=== PATIENT | male | born 1950 | race Caucasian/White ===

== ENCOUNTER 2016-09-12 07:31 | Day surgery (SDC) | payer OTHER, MEDICARE ==
[2016-09-06 16:55] VITALS: BMI 25.5
[2016-09-12] MEDS ORDERED: POVIDONE-IODINE 5% OPHTHALMIC PREP 30 ML SOLUTION ONE (09:55)
[2016-09-12] MEDS ORDERED: BUPIVACAINE HCL/PF 0.5% (5MG/ML) 10 ML VIAL ONE (09:55)
[2016-09-12] MEDS ORDERED: LIDOCAINE 1%/EPI 1:100000 (20 ML MULTI DOSE VIAL) ONE ×2 (09:55→10:24)
[2016-09-12] MEDS ORDERED: TETRACAINE 0.5% OPHTH SOLN 2 ML BOTTLE ONE (09:55)
[2016-09-12] MEDS ORDERED: BACITRACIN 3.5 GM OPTHALMIC OINT TUBE ONE (09:55)
[2016-09-12] MEDS ORDERED: GUM MASTIC/STORAX/MSAL/ALCOHOL 1 DRP DROPSBTL MC ONE (10:24)
[2016-09-12] MEDS ORDERED: ACETAMINOPHEN 500 MG TABLET (FP) PO PRN (10:36)
[2016-09-12] MEDS ORDERED: PROPOFOL 20 ML ONE (10:58)
[2016-09-12] MEDS ORDERED: MIDAZOLAM HCL 2 MG/2 ML SINGLE DOSE VIAL ONE ×2 (10:58)
[2016-09-12] MEDS ORDERED: ceFAZolin SODIUM 1 GM VIAL ONE (11:16)
[2016-09-12] MEDS ORDERED: DEXAMETHASONE SOD PHOSPHATE 4 MG/1 ML VIAL ONE (11:36)
[2016-09-12] MEDS ORDERED: ONDANSETRON 4 MG/2 ML VIAL ONE (11:36)
[2016-09-12] MEDS ORDERED: BSS (NA/CA/MG/K) BALANCED SALT SOLUTION OPHTH SOLN 15 ML BOTTLE ONE (11:48)
[2016-09-12] MEDS ORDERED: ONDANSETRON 4 MG/2 ML VIAL IVPUSH PRN (12:00)
[2016-09-12] MEDS ORDERED: LACTATED RINGERS SOLUTION 1,000 ML IV SCH (12:00)
[2016-09-12] MEDS ORDERED: oxyCODONE HCL 5 MG TABLET PO PRN (12:00)
[2016-09-12 12:23] VITALS: TEMP 97.9
[2016-09-12 13:06] VITALS: BP 124/67; PULSE 58
--- NOTE | 2016-09-13 13:57 | OP ---
DATE OF OPERATION: 09/12/2016 PREOPERATIVE DIAGNOSES: Basal cell carcinoma, left lower lid. POSTOPERATIVE DIAGNOSES: Basal cell carcinoma, left lower lid. PROCEDURE: Debridement and reconstruction of left lower lid defect following basal cell excision. SURGEON: Ally Alejo MD ANESTHESIA: Local with sedation. COMPLICATIONS: None. ESTIMATED BLOOD LOSS: 2 -3 mL OPERATIVE REPORT: Patient brought to the operating room and placed on the operating room table. Vital signs were monitored by Anesthesia. A time-out was performed. Tetracaine was placed in both eyes and after intravenous sedation, a 50:50 mixture of 2% Xylocaine 1:100,000 epinephrine and 0.5% Marcaine was injected subcutaneously in the left lower lid diffusely for 2 to 3 mL. Massage was applied for hemostasis. Patient was prepped and draped in sterile fashion exposing both eyes. Hexachlorophene was used avoiding contact with the eyes due to the patient's IODINE allergy, and then the wound was debrided and then subsequently a line was incised nasally and temporally out to the lateral canthus and skin and skin muscle flaps were advanced from the nasal and temporal eyelid toward the midline where they were sutured at the subciliary line with a running 6-0 plain suture and then they were sutured to each other with interrupted 6-0 plain sutures with plastic technique removing standing continuous deformities. Bacitracin ointment was placed on the sutures. The eyes were washed out with balanced salt solution to avoid any hexachlorophene residual and the patient was taken to the recovery room in stable condition. ALYL ALEJO M.D. [id number]
== END 2016-09-12 13:00 | disposition home or self-care (01) ==
LOC: FASU 07:31
PROVIDERS: ATTEND Ophthalmology
PROC: 08BR0ZZ Excision of Left Lower Eyelid, Open Approach (ICD-10-PCS; principal; 2016-09-12 11:28)
DX: C44.119 Basal cell carcinoma of skin of left eyelid, including canthus (principal)